=== PATIENT | male | born 1955 | race Caucasian/White ===

== ENCOUNTER 2022-12-11 09:38 | Day surgery (SDC) | payer BC, MEDICARE ==
[~2022-12-11 09:38] MED LIST: Lactated Ringers 1,000 ML IV PRN; Sodium Chloride 0.9% 10 ML Syringe FLUSH PRN
[2022-12-11] MEDS ORDERED: Midazolam 1 MG/ML 2 ML SDV IV ONE (09:39)
[2022-12-11] MEDS ORDERED: fentaNYL 100 MCG/2 ML SDV IV ONE (09:39)
[2022-12-11] MEDS ORDERED: acetaZOLAMIDE 500 MG Cap.ER PO ONE (11:30)
== END 2022-12-11 12:05 | disposition home or self-care (01) ==
LOC: FB.SDS 09:38 → EDSEX 09:38 → FB.SDS 12:05
PROVIDERS: ATTEND Ophthalmology
DX: H26.9 Unspecified cataract (principal); H21.81 Floppy iris syndrome; E78.5 Hyperlipidemia, unspecified; F32.A Depression, unspecified; I10 Essential (primary) hypertension; K21.9 Gastro-esophageal reflux disease without esophagitis; J43.1 Panlobular emphysema; G25.81 Restless legs syndrome; F17.210 Nicotine dependence, cigarettes, uncomplicated; Z79.899 Other long term (current) drug therapy; Z88.0 Allergy status to penicillin
CPT/HCPCS: 00142; A9270-GY; J2250; J3010; J3490; V2632

== ENCOUNTER 2022-12-25 08:33 | Day surgery (SDC) | payer MEDICARE ==
[2022-12-25] MEDS ORDERED: Sodium Chloride 0.9% 10 ML Syringe IV ONE (08:34)
[2022-12-25] MEDS ORDERED: fentaNYL 100 MCG/2 ML SDV IV ONE (08:34)
[2022-12-25] MEDS ORDERED: Midazolam 1 MG/ML 2 ML SDV IV ONE (08:34)
[2022-12-25] MEDS ORDERED: acetaZOLAMIDE 500 MG Cap.ER PO ONE (11:00)
== END 2022-12-25 11:18 | disposition home or self-care (01) ==
LOC: FB.SDS 08:33
PROVIDERS: ATTEND Ophthalmology
DX: H26.9 Unspecified cataract (principal); E78.5 Hyperlipidemia, unspecified; J44.9 Chronic obstructive pulmonary disease, unspecified; K21.9 Gastro-esophageal reflux disease without esophagitis; I10 Essential (primary) hypertension; F31.30 Bipolar disorder, current episode depressed, mild or moderate severity, unspecified; Z79.899 Other long term (current) drug therapy; J43.1 Panlobular emphysema; G25.81 Restless legs syndrome; Z88.0 Allergy status to penicillin; F17.210 Nicotine dependence, cigarettes, uncomplicated; Z90.49 Acquired absence of other specified parts of digestive tract; H21.81 Floppy iris syndrome
CPT/HCPCS: 00142; A9270-GY; J2250; J3010; J3490; V2632